=== PATIENT | female | born 1990 | race African-American/Black ===

== ENCOUNTER 2019-05-20 18:13 | Emergency (ER) | payer MEDICAID ==
[~2019-05-20] VITALS: Ht 172.7 cm; Wt 86.2 kg
[2019-05-20 19:10] LABS: Basophils # (auto) 0.1 uL; Basophils % (auto) 0.9 % (0.0-2.0); Eosinophils # (auto) 0.2 uL; Eosinophils % (auto) 1.8 % (0.0-7.0); Hematocrit 39.3 % (36.0-46.0); Hemoglobin 14.1 g/dL (12.2-16.2); Lymphocytes # (auto) 3.6 uL; Lymphocytes % (auto) 37.5 % (10.0-50.0); Mean Corpuscular Hemoglobin 28.5 pg (28.0-32.0); Mean Corpuscular Hgb Conc. 35.8 g/dL (32.0-36.0); Mean Corpuscular Volume 79.7 fL (80.0-100.0); Monocytes # (auto) 0.5 uL; Monocytes % (auto) 5.1 % (0.0-12.0); Neutrophils # (auto) 5.3 uL; Neutrophils % (auto) 54.7 % (37.0-80.0); Nucleated Red Blood Cells % 0.3 %; Platelet Count (auto) 161 10^3/uL (140-450); Red Blood Cells 4.93 10^6/uL (4.0-5.20); Red Cell Distribution Width 13.2 % (11.8-14.3); White Blood Cell 9.7 10^3/uL (4.4-10.8)
[2019-05-20 19:27] LABS: Albumin 3.6 g/dL (3.4-5.0); Anion Gap 6 (5-15); BUN/Creatinine Ratio 12.5; Blood Urea Nitrogen 10 mg/dL (7-18); Calcium 8.4 mg/dL (8.5-10.1); Carbon Dioxide 25 mmol/L (21-32); Chloride 108 mmol/L (98-107); GFR African American 108 mL/min; GFR Non-African American 90 mL/min; Glucose 150 mg/dL (74-106); Sodium 139 mmol/L (136-145)
[2019-05-20 19:32] LABS: Alanine Aminotransferase 39 U/L (13-56); Alkaline Phosphatase 118 U/L (45-117); Aspartate Aminotransferase 24 U/L (15-37); Bilirubin, Total 0.2 mg/dL (0.2-1.0); Total Protein 7.7 g/dL (6.4-8.2)
[2019-05-20 19:55] VITALS: BP 129/84
== END 2019-05-20 21:10 | disposition home or self-care (01) ==
LOC: ER 18:15 → EDSEX 18:15 → ER 21:10
DX: J42 Unspecified chronic bronchitis (principal); J01.00 Acute maxillary sinusitis, unspecified; F17.210 Nicotine dependence, cigarettes, uncomplicated
CPT/HCPCS: 36415; 71046; 80053; 81025; 83880; 84484; 85025; 93005

== ENCOUNTER 2019-06-10 16:20 | Emergency (ER) | payer MEDICAID ==
[~2019-06-10] VITALS: Ht 172.7 cm; Wt 88.5 kg
[2019-06-10 16:47] VITALS: BP 116/67
== END 2019-06-10 18:45 | disposition home or self-care (01) ==
LOC: ER 16:20
DX: J32.9 Chronic sinusitis, unspecified (principal); F17.210 Nicotine dependence, cigarettes, uncomplicated; Z90.89 Acquired absence of other organs